=== PATIENT | female | born 1995 | race American Indian/Alaskan Native ===

== ENCOUNTER 2019-04-23 03:15 | Emergency (ER) | payer SELFPAY ==
[2019-04-23] MEDS ORDERED: ETOMIDATE 20 MG/10 ML INJ IV ONE (04:12)
[2019-04-23] MEDS ORDERED: SODIUM CHLORIDE 0.9% 1000 ML 1,000 ML IV ONE (04:12)
[2019-04-23] MEDS ORDERED: PROPOFOL 200 MG/20 ML VIAL IV ONE (04:12)
--- NOTE | 2019-04-23 04:13 | Emergency Department Report ---
ED Upper Extremity Inj HPI - General Chief Complaint: Extremity Injury, Upper Stated Complaint: SHOULDER DISLOCATION Time Seen by Provider: 04/23/19 03:53 Source: EMS Mode of arrival: Ambulatory Limitations: Physical Limitation - History of Present Illness Initial Comments: Patient is a 23-year-old female that presents emergency room with complaints of right shoulder pain. Patient states she was sleeping and moved wrong and her shoulder dislocated. Patient states she's had a shoulder dislocation multiple times. Patient states she has a orthopedist. Patient states the pain is a 10 out of 10. Patient states the pain is better with rest and worse with movement of the limb. Patient states the pain is nonradiating. Patient states the stabbing pain. Patient states her last intake is 9 PM yesterday. MD Complaint: Injury to:: right, shoulder -: Sudden Other Extremity Injury: Shoulder: Right Other Injuries: none Handedness: right Place: home Severity scale (0 -10): 10 Improves With: rest Worsens With: movement of extremity Context: other Associated Symptoms: heard/felt popping sensat. denies: weakness, numbness, neck pain, suspects foreign body, nausea/vomiting Treatments Prior to Arrival: splint, other - Related Data Allergies Allergy/AdvReac Type Severity Reaction Status Date / Time No Known Allergies Allergy Unverified 04/23/19 03:54 ED Review of Systems ROS: Stated complaint: SHOULDER DISLOCATION Other details as noted in HPI Comment: All other systems reviewed and negative ED Past Medical Hx - Past Medical History Previous Medical History?: Yes - Surgical History Past Surgical History?: No - Social History Smoking Status: Never Smoker Substance Use Type: None ED Physical Exam - General Limitations: Physical Limitation General appearance: alert, in no apparent distress - Head Head exam: Present: atraumatic, normocephalic - Eye Eye exam: Present: normal appearance - ENT ENT exam: Present: mucous membranes moist - Neck Neck exam: Present: normal inspection - Respiratory Respiratory exam: Present: normal lung sounds bilaterally. Absent: respiratory distress - Cardiovascular Cardiovascular Exam: Present: regular rate, normal rhythm. Absent: systolic murmur, diastolic murmur, rubs, gallop - GI/Abdominal GI/Abdominal exam: Present: soft, normal bowel sounds - Extremities Exam Extremities exam: Present: tenderness (to right shoulder) - Back Exam Back exam: Present: normal inspection - Neurological Exam Neurological exam: Present: alert, oriented X3 - Psychiatric Psychiatric exam: Present: normal affect, normal mood - Skin Skin exam: Present: warm, dry, intact, normal color. Absent: rash ED Course Vital Signs 04/23/19 04/23/19 04/23/19 03:42 03:53 05:08 Pulse Rate 80 91 H Respiratory 16 16 16 Rate Blood Pressure 119/71 135/93 [Left] O2 Sat by Pulse 100 100 100 Oximetry 04/23/19 04/23/19 04/23/19 05:13 05:20 07:34 Pulse Rate 76 70 73 Respiratory 14 14 16 Rate Blood Pressure 143/81 133/88 133/72 [Left] O2 Sat by Pulse 100 100 99 Oximetry - Reevaluation(s) Reevaluation #1: Patient's x-ray shows dislocation. Patient will have a reduction and conscious sedation. Patient states never had any complications from conscious sedation in The past. 04/23/19 04:18 Reevaluation #2: Patient's labs back. Consent received from patient. Patient agrees to have procedure done. Patient given etomidate and propofol. Patient shoulder reduced without difficulty. Patient will be continued to be monitored 04/23/19 05:01 Reevaluation #3: Patient's vital signs stable. Patient's oxygen stable. 04/23/19 05:21 Reevaluation #4: Patient awake, alert and oriented. Patient answering questions appropriately. Patient's repeat shoulder x-ray shows a satisfactory reduction. . 04/23/19 05:55 Reevaluation #5: I discussed all results patient. Discussed plan of care with patient. Patient agrees with plan of care. Patient will be monitored for one more hour. Patient given discharge instructions. Patient voiced understanding of discharge instructions. 04/23/19 06:16 - Moderate Sedation Indications: fracture/dislocation redu ASA Class: I Mallampati Airway Score: 1 Time of Last PO Intake: 09:00 (9 pm on 04/22/2019) Preparation: cardiac care nurse applied, pulse oximeter, capnometry used, supplemental O2 applied, suction/airway equipment at bedside, IV secured IV Propofol Dose (mgs): 20 IV Etomidate Dose (mgs): 7 Complications: none Patient Tolerated Procedure: well, no complications - Orthopedic Joint Reduction Joint #1 Consent Obtained: verbal consent, written consent, emergent situation Time Out Performed: Yes Side: right Joint Reduction Location: shoulder Analgesia: moderate sedation Shoulder Technique Used (if applicable): traction/counter-traction, external rotation Post-Reduction Neuro Exam: intact Post-Reduction Vascular Exam: intact Post Reduction X-Ray Obtained: Yes Post Reduction X-Ray Results: reduced Splint Applied: Yes Patient Tolerated Procedure: well, no complications ED Medical Decision Making - Radiology Data Radiology results: report reviewed, image reviewed interpreted by me: X-ray read and shows dislocation of the right shoulder Second x-ray shows satisfactory reduction. RIGHT SHOULDER 1 VIEW INDICATION / CLINICAL INFORMATION: Dislocated shoulder. COMPARISON: 05/22/2012. FINDINGS: BONES / JOINT(S): There is inferior and medial displacement of the right humeral head in relationship to the glenoid. There is mild flattening of the humeral head superolaterally. No significant arthritis. SOFT TISSUES: No significant abnormality. ADDITIONAL FINDINGS: The right lung is clear. IMPRESSION: Anterior dislocation of the right shoulder with a probable Hill- Sachs lesion.\ RIGHT SHOULDER 1 VIEW 5:07 AM INDICATION / CLINICAL INFORMATION: Post reduction. COMPARISON: Earlier today at 4:02 AM. FINDINGS: BONES / JOINT(S): The previously described anterior dislocation has been reduced. A possible Hill- Sachs lesion is again noted. SOFT TISSUES: No significant abnormality. ADDITIONAL FINDINGS: None. IMPRESSION: Interval reduction of the previously described anterior dislocation of the right shoulder - Medical Decision Making Patient is a 23-year-old female that presents emergency room with complaints of right shoulder pain. Patient has a chronic history of dislocations. Patient had conscious sedation and a shoulder reduction. Patient's initial x-ray shows an anterior dislocation. Patient's repeat postreduction x-ray shows a satisfactory reduction. Patient had a serum done in the ER and was negative. See procedure notes. - Differential Diagnosis shoulder pain, shoulder dislocation. Critical Care Time: Yes Critical care time in (mins) excluding proc time.: 50 Critical care attestation.: If time is entered above; I have spent that time in minutes in the direct care of this critically ill patient, excluding procedure time. Critical Care Time: 50 minutes ED Disposition Clinical Impression: Shoulder dislocation Qualifiers: Encounter type: initial encounter Laterality: right Qualified Code(s): S43.004A - Unspecified dislocation of right shoulder joint, initial encounter Shoulder pain, right Qualifiers: Chronicity: acute Qualified Code(s): M25.511 - Pain in right shoulder Disposition: DC-01 TO HOME OR SELFCARE Is pt being admited?: No Does the pt Need Aspirin: No Condition: Stable Instructions: Shoulder Dislocation (ED), Moderate Sedation (ED), Shoulder Sprain (ED) Additional Instructions: Patient to follow up with primary care in 2-3 days. Patient to follow-up with orthopedist in 2-3 days. Patient to remain and sling until cleared by orthopedist. Patient to rest. Patient to increase water. Patient to take Tylenol or ibuprofen when necessary for pain. Patient to stay off work until cleared by orthopedist. Referrals: PRIYANK COTTO MD [Staff Physician] - 2-3 Days Forms: Work/School Release Form(ED) Time of Disposition: 06:30
--- NOTE | 2019-04-23 04:34 | XRay Report ---
RIGHT SHOULDER 1 VIEW INDICATION / CLINICAL INFORMATION: Dislocated shoulder. COMPARISON: 05/22/2012. FINDINGS: BONES / JOINT(S): There is inferior and medial displacement of the right humeral head in relationship to the glenoid. There is mild flattening of the humeral head superolaterally. No significant arthrit is. SOFT TISSUES: No significant abnormality. ADDITIONAL FINDINGS: The right lung is clear. IMPRESSION: Anterior dislocation of the right shoulder with a probable Hill-Sachs lesion. Signer Name: Ant Gómez MD Signed: 04/23/2019 4:30 AM Workstation Name: [email or web address]
--- NOTE | 2019-04-23 05:34 | XRay Report ---
RIGHT SHOULDER 1 VIEW 5:07 AM INDICATION / CLINICAL INFORMATION: Post reduction. COMPARISON: Earlier today at 4:02 AM. FINDINGS: BONES / JOINT(S): The previously described anterior dislocation has been reduced. A possible Hill-Sac hs lesion is again noted. SOFT TISSUES: No significant abnormality. ADDITIONAL FINDINGS: None. IMPRESSION: Interval reduction of the previously described anterior dislocation of the right shoulder . Signer Name: Ant Gómez MD Signed: 04/23/2019 5:30 AM Workstation Name: [id number]
[2019-04-23] MEDS ORDERED: KETOROLAC 30 MG/1 ML INJ IV ONE (05:59)
[2019-04-23 07:39] VITALS: BP 133/72
== END 2019-04-23 07:34 | disposition home or self-care (01) ==
LOC: ED 03:15
DX: S43.004A Unspecified dislocation of right shoulder joint, initial encounter (principal); X58.XXXA Exposure to other specified factors, initial encounter; Y93.89 Activity, other specified; Y92.89 Other specified places as the place of occurrence of the external cause; Y99.8 Other external cause status
CPT/HCPCS: 23650; 36415; 73020; 84703; 96374; 99285; J1885; J2704; J7030

== ENCOUNTER 2020-04-19 18:59 | Emergency (ER) | payer MEDICAID, OTHER ==
[2020-04-19] MEDS ORDERED: IBUPROFEN 600 MG TAB PO ONE ×2 (20:21→23:37)
[2020-04-19] MEDS ORDERED: ACETAMINOPHEN 500 MG TAB PO ONE ×2 (20:21→23:37)
[2020-04-19 21:18] LABS: HCG Qualitative,Urine Negative (Negative)
[2020-04-19 21:22] LABS: Bilirubin,Urine NEG (Negative); Blood,Urine NEG (Negative); Color,Urine Yellow (Yellow); Mucus,Urine 1+ /HPF; Protein,Urine <15 mg/dL mg/dL (Negative)
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
[2020-04-20 00:05] VITALS: BP 122/80
== END 2020-04-20 03:04 | disposition other institution (70) ==
LOC: ED 18:59
DX: S32.402A Unspecified fracture of left acetabulum, initial encounter for closed fracture (principal); S39.012A Strain of muscle, fascia and tendon of lower back, initial encounter; Z98.890 Other specified postprocedural states; V49.49XA Driver injured in collision with other motor vehicles in traffic accident, initial encounter; Y93.89 Activity, other specified; Y92.410 Unspecified street and highway as the place of occurrence of the external cause; Y99.8 Other external cause status
CPT/HCPCS: 72100; 81001; 81025